=== PATIENT | male | born 1950 | race African-American/Black ===

== ENCOUNTER 2019-08-16 15:48 | Inpatient (IN) | payer MEDICARE, MEDICAID ==
[~2019-08-16] VITALS: Ht 167.6 cm; Wt 67.6 kg
[2019-08-16 16:00] VITALS: BP 145/94
--- NOTE | 2019-08-16 16:02 | Emergency Room Report ---
History of Present Illness General Chief Complaint: Chest Pain Source: Patient Present Illness HPI Disclaimer: Please note that this report is being documented using [employer] technology. This can lead to erroneous entry secondary to incorrect interpretation by the dictating instrument. HPI: 69-year-old male history of peripheral vascular disease, hypertension, diabetes presents for evaluation of chest pain. Symptoms began 3 hours ago. The patient states he was walking around his room at the convalescent home when he felt tightness and cramping in his legs which he usually gets from peripheral vascular disease but also felt a tightness across his chest, left side greater than than right, that radiated up to the neck and down the left side of the body. This pain is now resolved but he continues to feel a tightness in the chest intermittently that is exacerbated by bending and twisting motions. He denies any recent cough but did report some shortness of breath while he was experiencing the chest discomfort. He reported some vertiginous-like symptoms and has a history of vertigo. There was no loss of consciousness, head injury reported. Extensive smoking history and family history of CAD. The patient does not believe that he has had a heart attack or have any stents. Denies recent fever, chills, vomiting, diarrhea, sore throat, nasal congestion. PMH: Hypertension, hyperlipidemia, diabetes, vertigo PSH: Reviewed Allergies: Denies Social Hx: Extensive smoking history Allergies: Coded Allergies: No Known Allergies (Unverified , 08/16/19) COVID-19 Screening Contact w/high risk pt: No Recent Travel to affected area: No Experienced COVID-19 symptoms?: Yes COVID-19 symptoms experienced: Shortness of Breath Review of Systems All Other Systems: negative except mentioned in HPI Physical Exam Vital Signs Date Time Temp Pulse Resp B/P (MAP) Pulse Ox O2 Delivery O2 Flow Rate FiO2 08/16/19 15:49 97.9 64 20 145/94 (111) 97 Room Air General: Awake and alert, no acute distress HEENT: NC/AT. EOMI. Neck: Supple, trachea midline Chest Wall: Reproducible chest wall pain without crepitus or deformity Cardiovascular: RRR. S1 and S2 normal. No murmur appreciated Resp: Normal work of breathing. No cough, wheezing or crackles appreciated Abdomen: Abdomen is soft, nondistended. Nontender Skin: Intact. No abrasions, laceration or rash over the exposed skin MSK: Normal tone and bulk. Moving all extremities. No obvious deformity. Calves are symmetrical, nontender Neuro: Awake and alert. Mentating appropriately. Medical Decision Making Diagnostic Impression: Primary Impression: Chest pain Additional Impression: Suspected 2019 novel coronavirus infection ER Course This is 69-year-old male presenting from convalescent home for evaluation of chest pain and shortness of breath. Differential includes was not limited to angina, ACS, pleurisy, pneumonia, bronchitis. He is in no distress. Oxygenation 97% on room air. Will obtain EKG, chest x-ray, blood work including cardiac enzymes. Patient denies any recent cardiac stress testing or history of angiography. His symptoms may also represent a flulike illness and possibly coronavirus 19 infection. Will require admission to isolation. Laboratory Tests Test 08/16/19 16:50 White Blood Count 6.9 K/UL (4.8-10.8) Red Blood Count 5.08 M/UL (4.70-6.10) Hemoglobin 14.6 G/DL (14.2-18.0) Hematocrit 43.8 % (42.0-52.0) Mean Corpuscular Volume 86 FL (80-99) Mean Corpuscular Hemoglobin 28.8 PG (27.0-31.0) Mean Corpuscular Hemoglobin Concent 33.3 G/DL (32.0-36.0) Red Cell Distribution Width 12.9 % (11.6-14.8) Platelet Count 229 K/UL (150-450) Mean Platelet Volume 8.3 FL (6.5-10.1) Neutrophils (%) (Auto) 50.3 % (45.0-75.0) Lymphocytes (%) (Auto) 36.7 % (20.0-45.0) Monocytes (%) (Auto) 10.2 % (1.0-10.0) H Eosinophils (%) (Auto) 1.6 % (0.0-3.0) Basophils (%) (Auto) 1.2 % (0.0-2.0) Sodium Level 140 MMOL/L (136-145) Potassium Level 4.5 MMOL/L (3.5-5.1) Chloride Level 105 MMOL/L (98-107) Carbon Dioxide Level 30 MMOL/L (21-32) Anion Gap 5 mmol/L (5-15) Blood Urea Nitrogen 17 mg/dL (7-18) Creatinine 1.0 MG/DL (0.55-1.30) Estimated Glomerular Filtration Rate > 60 mL/min (>60) Glucose Level 103 MG/DL (74-106) Calcium Level 9.6 MG/DL (8.5-10.1) Total Bilirubin 0.6 MG/DL (0.2-1.0) Aspartate Amino Transferase (AST) 55 U/L (15-37) H Alanine Aminotransferase (ALT) 93 U/L (12-78) H Alkaline Phosphatase 84 U/L (46-116) Troponin I 0.000 ng/mL (0.000-0.056) Pro-B-Type Natriuretic Peptide 39 pg/mL (0-125) Total Protein 7.7 G/DL (6.4-8.2) Albumin 3.8 G/DL (3.4-5.0) Globulin 3.9 g/dL Albumin/Globulin Ratio 1.0 (1.0-2.7) EKG Diagnostic Results EKG Time: 16:05 Rate: normal Rhythm: NSR ST Segments: no acute changes Other Impression Sinus rhythm, normal axis, normal intervals, no ST segment changes Rhythm Strip Diag. Results Rhythm Strip Time: 16:05 EP Interpretation: yes Rate: 60s Rhythm: NSR, no PVC's, no ectopy Chest X-Ray Diagnostic Results Chest X-Ray Diagnostic Results : Chest X-Ray Ordered: Yes # of Views/Limited/Complete: 1 View Indication: Chest Pain Interpretation: no consolidation, no effusion, no pneumothorax, no acute cardiopulmonary disease Impression: No acute disease Electronically Signed by: Electronically signed by Dr. Dwayne Collier Reevaluation Time: 17:32 Last Vital Signs Date Time Temp Pulse Resp B/P (MAP) Pulse Ox O2 Delivery O2 Flow Rate FiO2 08/16/19 15:49 97.9 64 20 145/94 (111) 97 Room Air Status: unchanged Reevaluation Impression EKG is nonischemic. Chest x-ray unremarkable without evidence of infiltrate. Labs including troponin are within normal limits. The patient remains chest pain-free and in stable condition. He will be admitted to telemetry on respiratory isolation protocols until the COVID-19 swab is resulted. Patient will be admitted to his PMD, Dr. Marie. Disposition: ADMITTED INPATIENT Condition: Serious Dwayne Collier MD Aug 16, 2019 16:02
--- NOTE | 2019-08-16 17:09 | Diagnostic Imaging Report ---
Indication: Chest pain Technique: One view of the chest Comparison: none Findings: No acute infiltrates, effusions, or congestion. Tortuous calcified aorta. Normal heart size. Upper mediastinum unremarkable. Impression: No acute process.
[2019-08-16 17:13] LABS: ANION GAP 5 mmol/L (5-15); BLOOD UREA NITROGEN 17 mg/dL (7-18); CALCIUM 9.6 MG/DL (8.5-10.1); CARBON DIOXIDE 30 MMOL/L (21-32); CHLORIDE 105 MMOL/L (98-107); POTASSIUM 4.5 MMOL/L (3.5-5.1); SODIUM 140 MMOL/L (136-145)
[2019-08-16 17:19] LABS: BASOPHILS % (AUTO) 1.2 % (0.0-2.0); EOSINOPHILS % (AUTO) 1.6 % (0.0-3.0); HEMATOCRIT 43.8 % (42.0-52.0); HEMOGLOBIN 14.6 G/DL (14.2-18.0); LYMPHOCYTES % (AUTO) 36.7 % (20.0-45.0); MEAN CORPUSCULAR VOLUME 86 FL (80-99); MONOCYTES % (AUTO) 10.2 % (1.0-10.0); NEUTROPHILS % (AUTO) 50.3 % (45.0-75.0); PLATELET COUNT 229 K/UL (150-450); RED BLOOD COUNT 5.08 M/UL (4.70-6.10); RED CELL DISTRIBUTION WIDTH 12.9 % (11.6-14.8); WHITE BLOOD COUNT 6.9 K/UL (4.8-10.8)
[2019-08-16 17:25] LABS: ALANINE AMINOTRANSFERASE 93 U/L (12-78); ALBUMIN 3.8 G/DL (3.4-5.0); ALKALINE PHOSPHATASE 84 U/L (46-116); ASPARTATE AMINO TRANSFERASE 55 U/L (15-37); BILIRUBIN,TOTAL 0.6 MG/DL (0.2-1.0)
[2019-08-16 18:02] VITALS: BP 141/90
[2019-08-16 19:10] VITALS: BP 136/79
[2019-08-16 20:45] VITALS: BP 129/72
[2019-08-16] MEDS ORDERED: BENAZEPRIL HCL10 MG ORAL (23:01)
[2019-08-16] MEDS ORDERED: METFORMIN HCL500 M4 ORAL (23:01)
[2019-08-16] MEDS ORDERED: DOCUSATE SODIU100 M2 ORAL (23:01)
[2019-08-16] MEDS ORDERED: GABAPENTIN100 MG ORAL (23:01)
[2019-08-16] MEDS ORDERED: MULTIVITAMINS1 EAC8 ORAL (23:01)
[2019-08-16] MEDS ORDERED: NOVOLOG100 UNITS1 (23:01)
[2019-08-16] MEDS ORDERED: ACETAMINOPHEN500 MG ORAL (23:01)
[2019-08-16] MEDS ORDERED: Acetaminophen 500mg (ES) tab ORAL PRN (23:15)
[2019-08-17 00:03] VITALS: BP 144/92
[2019-08-17 04:00] VITALS: BP 153/84
[2019-08-17] MEDS: NovoLOG Insulin Flexpen SUBQ SCH ×4 (05:28→21:00)
[2019-08-17 08:11] LABS: ANION GAP 6 mmol/L (5-15); BLOOD UREA NITROGEN 16 mg/dL (7-18); CALCIUM 9.4 MG/DL (8.5-10.1); CARBON DIOXIDE 30 MMOL/L (21-32); CHLORIDE 106 MMOL/L (98-107); CREATININE 0.9 MG/DL (0.55-1.30); POTASSIUM 4.7 MMOL/L (3.5-5.1); SODIUM 142 MMOL/L (136-145)
[2019-08-17 08:18] LABS: BASOPHILS % (AUTO) 1.6 % (0.0-2.0); EOSINOPHILS % (AUTO) 2.4 % (0.0-3.0); HEMATOCRIT 43.6 % (42.0-52.0); HEMOGLOBIN 14.9 G/DL (14.2-18.0); LYMPHOCYTES % (AUTO) 31.8 % (20.0-45.0); MEAN CORPUSCULAR VOLUME 84 FL (80-99); MONOCYTES % (AUTO) 14.9 % (1.0-10.0); NEUTROPHILS % (AUTO) 49.4 % (45.0-75.0); PLATELET COUNT 219 K/UL (150-450); RED BLOOD COUNT 5.19 M/UL (4.70-6.10); RED CELL DISTRIBUTION WIDTH 11.5 % (11.6-14.8); WHITE BLOOD COUNT 6.9 K/UL (4.8-10.8)
[2019-08-17] MEDS: Multivitamin w/Minerals tab ORAL SCH (09:51)
[2019-08-17] MEDS: Docusate 100mg cap ORAL SCH (09:51)
[2019-08-17] MEDS: Benazepril 10mg tab ORAL SCH (09:51)
[2019-08-17] MEDS: metFORMIN 500mg tab ORAL SCH (09:51)
[2019-08-17 12:00] VITALS: BP 100/70
[2019-08-17 20:00] VITALS: BP 111/65
--- NOTE | 2019-08-17 22:30 | Initial Psychiatric Evaluation ---
Psychiatry Consultation Psychiatry Consultation Chief Complaint: Chest Pain Allergies: Coded Allergies: No Known Allergies (Unverified , 08/16/19) Medication History Scheduled Acetaminophen* (Tylenol Extra Strength*), 1,000 MG ORAL Q4HR, (Reported) Benazepril Hcl* (Benazepril Hcl*), 10 MG ORAL DAILY, (Reported) Docusate Sodium (Docusate Sodium), 100 MG ORAL DAILY, (Reported) Gabapentin* (Gabapentin*), 200 MG ORAL TWICE A DAY, (Reported) Metformin Hcl (Metformin Hcl Er), 500 MG ORAL DAILY, (Reported) Multivitamin With Minerals (Multivitamins With Minerals*), 1 TAB ORAL DAILY, ( Reported) Miscellaneous Medications Insulin Aspart (Novolog Flexpen), (Reported) Objective Data Height (Feet): 5 Height (Inches): 6.00 Weight (Pounds): 149 Jd Chao MD Aug 17, 2019 22:30
[2019-08-18] VITALS: BP 107/61
[2019-08-18 04:00] VITALS: BP 116/74
--- NOTE | 2019-08-18 05:15 | History and Physical Report ---
DATE OF ADMISSION: 08/16/2019 HISTORY OF PRESENT ILLNESS: The patient comes in because of chest pain. The patient basically denies nausea, vomiting, or diarrhea. Denies cough. Denies also fever or chills. The patient also denies shortness of breath and denies orthopnea. PAST MEDICAL HISTORY: Significant for GERD, psychosis, and mood disorder. PAST SURGICAL HISTORY: Denies. ALLERGIES: No known allergies. MEDICATIONS: The patient takes mostly psychiatric medications. FAMILY HISTORY: Noncontributory. SOCIAL HISTORY: Does have history of remote smoking. Denies history of alcohol abuse. Denies history of drug abuse. Comes from a group home. REVIEW OF SYSTEMS: HEENT: Denies headaches. PULMONARY: Denies shortness of breath. Denies cough. CARDIOVASCULAR: Reported chest pain x1 day. No radiation. No palpitation. No orthopnea. GASTROINTESTINAL: Denies nausea, vomiting, or diarrhea. Denies heartburn. EXTREMITIES: Denies pain. CENTRAL NERVOUS SYSTEM: Denies change in speech pattern. PHYSICAL EXAMINATION: VITAL SIGNS: Temperature 97.2, pulse 78, blood pressure 132/70. HEENT: PERRLA. NECK: Supple. No lymphadenopathy. CHEST: Clear to auscultation. CARDIOVASCULAR: Regular rate and rhythm. No murmurs or extra sounds. GASTROINTESTINAL: Soft, nontender, nondistended. No organomegaly. EXTREMITIES: No edema. Moves all four extremities. NEUROLOGIC: Sensory intact to light touch. Reflexes in both sides. Moves all four extremities. LABORATORY DATA: Essentially normal. ASSESSMENT AND PLAN: Chest pain, rule out acute coronary syndrome. The patient's troponin sent. Repeat troponin will be done. Dr. Jaime is consulted to rule out acute coronary syndrome. The stress test if any will be deferred to Dr. Jaime. We will monitor the patient closely. Esther Marie M.D. DR: Fabiola JOB#: [id number] CC:
[2019-08-18] MEDS: NovoLOG Insulin Flexpen SUBQ SCH ×4 (06:30→21:00)
[2019-08-18 08:00] VITALS: BP 112/75
[2019-08-18] MEDS: Docusate 100mg cap ORAL SCH (08:35)
[2019-08-18] MEDS: Multivitamin w/Minerals tab ORAL SCH (08:36)
[2019-08-18] MEDS: metFORMIN 500mg tab ORAL SCH (08:36)
[2019-08-18] MEDS: Benazepril 10mg tab ORAL SCH (08:46)
[2019-08-18 12:00] VITALS: BP 110/66
[2019-08-18 16:00] VITALS: BP 134/56
[2019-08-18 20:00] VITALS: BP 130/69
--- NOTE | 2019-08-18 21:40 | General Progress Note ---
Assessment/Plan Status: progressing Assessment/Plan: chest pain is improving negative trop will dc if ok w dr chau Subjective ROS Limited/Unobtainable: Yes Allergies: Coded Allergies: No Known Allergies (Unverified , 08/16/19) Objective Last 24 Hour Vital Signs Date Time Temp Pulse Resp B/P (MAP) Pulse Ox O2 Delivery O2 Flow Rate FiO2 08/18/19 16:00 62 08/18/19 16:00 97.9 72 18 134/56 (82) 98 08/18/19 12:00 61 08/18/19 12:00 97.7 65 18 110/66 (81) 98 08/18/19 09:00 Room Air 08/18/19 08:46 112/75 08/18/19 08:00 97.8 86 18 112/75 (87) 98 08/18/19 08:00 53 08/18/19 04:00 97.2 60 18 116/74 (88) 99 08/18/19 03:45 52 08/18/19 00:00 61 08/18/19 00:00 98.4 62 19 107/61 (76) 99 Intake and Output 08/17/19 08/18/19 19:00 07:00 Intake Total 980 ml 250 ml Output Total 450 ml Balance 980 ml -200 ml Intake Oral 980 ml 250 ml Output Urine Total 450 ml # Voids 5 2 Height (Feet): 5 Height (Inches): 6.00 Weight (Pounds): 149 Esther Marie MD Aug 18, 2019 21:40
--- NOTE | 2019-08-18 21:45 | Progress Note ---
DATE: 08/18/2019 SUBJECTIVE: The patient is in bed, able to answer the question. He is in isolation. He is using a walker to ambulate. MENTAL STATUS EXAMINATION: Alert and oriented times self and place, did not know the date. Mood is neutral. Affect is flat. Thought process is concrete. Thought content, there is no suicidal or homicidal ideation. Cognition is impaired. Insight and judgment impaired. ASSESSMENT: AXIS I: 1. Major depressive disorder. 2. Psychotic disorder. PLAN: 1. We will continue the Lexapro 10 mg in the morning. 2. Ativan as needed. Jd Chao M.D. DR: Lacey JOB#: [id number] CC:
[2019-08-19] VITALS: BP 146/60
[2019-08-19 04:00] VITALS: BP 130/86
[2019-08-19] MEDS: NovoLOG Insulin Flexpen SUBQ SCH ×2 (06:30→11:30)
[2019-08-19 08:00] VITALS: BP 128/76
[2019-08-19] MEDS: metFORMIN 500mg tab ORAL SCH (09:28)
[2019-08-19] MEDS: Docusate 100mg cap ORAL SCH (09:28)
[2019-08-19 09:29] VITALS: BP 128/76
[2019-08-19] MEDS: Benazepril 10mg tab ORAL SCH (09:29)
[2019-08-19] MEDS: Multivitamin w/Minerals tab ORAL SCH (09:29)
--- NOTE | 2019-08-19 14:17 | Cardiology Progress Note ---
Assessment/Plan Assessment/Plan Th patient is seen and examined, full consult note is dictated. Objective Last 24 Hour Vital Signs Date Time Temp Pulse Resp B/P (MAP) Pulse Ox O2 Delivery O2 Flow Rate FiO2 08/19/19 09:29 128/76 08/19/19 09:00 Room Air 08/19/19 08:00 58 08/19/19 08:00 98.0 76 20 128/76 (93) 97 08/19/19 04:00 57 08/19/19 04:00 97.6 64 18 130/86 (101) 100 08/19/19 01:40 Room Air 08/19/19 00:00 98.6 68 19 146/60 (88) 100 08/19/19 00:00 68 08/19/19 00:00 68 08/18/19 21:00 Room Air 08/18/19 20:00 66 08/18/19 20:00 96.6 67 18 130/69 (89) 95 08/18/19 16:00 62 08/18/19 16:00 97.9 72 18 134/56 (82) 98 Intake and Output 08/18/19 08/19/19 19:00 07:00 Intake Total 236 ml Output Total 600 ml Balance -364 ml Intake Oral 236 ml Output Urine Total 600 ml # Voids 5 3 Microbiology Date/Time Source Procedure Growth Status 08/16/19 18:30 Nasal Nares MRSA Culture - Final NO METHICILLIN RESISTANT STAPH AUREUS... Complete 08/16/19 18:20 Nasopharynx Coronavirus COVID-19 PCR ([facility]) - Final Complete 08/16/19 18:30 Rectum - Final NO CARBAPENEM-RESISTANT ENTEROBACTERI... Complete 08/16/19 18:30 Rectum VRE Culture - Final NO VANCOMYCIN RESISTANT ENTEROCOCCUS ... Complete Juliocesar Jaime MD Aug 19, 2019 14:17
--- NOTE | 2019-08-19 20:45 | Consultation ---
DATE OF CONSULTATION: 08/19/2019 CARDIOLOGY CONSULTATION CONSULTING PHYSICIAN: Juliocesar Jaime MD. REFERRING PHYSICIAN: Esther Marie M.D. REASON FOR CONSULTATION: Management of chest pain. HISTORY OF PRESENT ILLNESS: The patient is a very unfortunate 69-year-old gentleman with prior history of peripheral vascular disease, hypertension, diabetes mellitus who presents to this facility with complaints of chest pain that occurred just about three hours prior to his arrival to this facility. The patient states that he was walking in the convalescent nursing facility and felt tightness and cramping of the leg and also at once he experienced pain in the chest in both side chest wall more accentuated in the left side with radiation to the neck and down to the left side of the body. He states that the chest pain is exacerbated by movements in particular when positions. He denies any cough or fever but reported some shortness of breath. The patient at the time of arrival to the facility, blood pressure 145/94 mmHg and heart rate of 64. At the time of evaluation in the emergency department, initial chest x-ray showed no acute cardiopulmonary disease with normal cardiac silhouette. Laboratory data was significant for a troponin I level x2 as well as normal electrolytes and normal brain natriuretic peptide. The patient was admitted to the hospital for evaluation and management of chest pain. PAST MEDICAL HISTORY: Hypertension, hyperlipidemia, diabetes mellitus, vertigo. PAST SURGICAL HISTORY: None. SOCIAL HISTORY: No history of drugs or alcohol but he has had history of extensive tobacco use in the past. FAMILY HISTORY: No premature coronary artery disease in the first-degree relatives. REVIEW OF SYSTEMS: HEENT: Denies any headache, diplopia, blurred vision. CONSTITUTIONAL: Denies any fever, chills, night sweats, or weight loss. CARDIOVASCULAR: Chest pain is reproducible with bending and twisting motions in both side of the chest wall right and left, more in the left, positive for shortness of breath. No PND, orthopnea, leg swelling, syncope, or palpitation. PULMONARY: Positive for shortness of breath. No cough or hemoptysis. GASTROINTESTINAL: Denies any nausea, vomiting, diarrhea, constipation, abdominal pain, or GI bleed. GENITOURINARY: Denies any hematuria, dysuria, or incontinence. NEUROLOGY: Denies any motor dysfunction, sensory deficit, or altered speech. MEDICATIONS: List of medication in the comparison facility includes acetaminophen 1000 mg q.4h p.r.n. pain, benazepril 10 mg p.o. daily, Colace 100 mg p.o. daily, gabapentin twice daily, insulin aspart, metformin 500 mg daily, multivitamin one tablet daily. PHYSICAL EXAMINATION: VITAL SIGNS: Blood pressure at the time of arrival to this facility was 145/94, pulse of 64, respirations 20, temperature 97.9 degrees Fahrenheit, O2 saturation 97% on room air. GENERAL: The patient is a very unfortunate 69-year-old gentleman in no apparent respiratory distress. Alert and oriented x4. HEENT: Atraumatic and normocephalic. Anicteric. Pupils are equal, round, and reactive to light and accommodation. Extraocular muscles intact. NECK: JVP less than 5 centimeter. No carotid bruit. Carotid upstrokes 2+ bilaterally. CVS: Normal S1 and S2. Regular rate and rhythm. There is a tenderness over the chest wall upon palpation. No murmurs, gallops, or rubs. PMI is at fourth intercostal space in the midclavicular line. LUNGS: Clear to auscultation bilaterally. ABDOMEN: Soft, nontender, and nondistended. No hepatosplenomegaly. Positive bowel sounds. EXTREMITIES: No evidence of edema, clubbing, or cyanosis. LABORATORY AND DIAGNOSTIC DATA: A 12-lead electrocardiogram shows sinus rhythm, heart rate of 62 with no acute ischemic features. Laboratory findings, sodium 140, potassium is 4.5, chloride 105, bicarbonate 30, BUN of 17, creatinine 1.0, glucose 103, calcium 9.6. Troponin I x2 negative. ProBNP was 39. CBC showed WBC 6.9, hemoglobin 14.6, hematocrit of 43.8, and platelet count is 229. Chest x-ray shows no acute cardiopulmonary disease with normal cardiac silhouette. ASSESSMENT AND PLAN: The patient is a very unfortunate 69-year-old gentleman, seen in Cardiology consultation. 1. Noncardiac chest pain despite many risk factors for coronary artery disease including tobacco use, hypertension, diabetes mellitus, patient age. The patient's chest pain is considered to be noncardiac based on reproducibility of the chest pain with movement and palpation. A 12-lead electrocardiogram does not show any ischemic changes. Acute myocardial infarction is ruled out. In the area of COVID-19 infection, I would like to proceed with no further cardiac workup and the patient will benefit from outpatient stress test that can be scheduled later if the patient symptoms are recurrent. At this time, the patient should continue on aspirin and statins in view of his underlying diabetes mellitus. 2. Diabetes mellitus. 3. Hypertension, currently controlled with benazepril. 4. Hyperlipidemia. I would like to thank, for the courtesy of this consultation. Juliocesar Jaime M.D. DR: Leia JOB#: [id number] CC:
--- NOTE | 2019-08-19 20:50 | Psych Consult Progress Note ---
Psychiatry Progress Note Psychiatry Progress Note Allergies: Coded Allergies: No Known Allergies (Unverified , 08/16/19) Objective Data Height (Feet): 5 Height (Inches): 6.00 Weight (Pounds): 149 Assessment/Plan Status: progressing Jd Chao MD Aug 19, 2019 20:50
--- NOTE | 2019-08-21 12:34 | Discharge Summary ---
Discharge Summary Discharge Summary _ DATE OF ADMISSION: 08/16/2019 DATE OF DISCHARGE: 08/19/2019 DISCHARGED BY: Dr. Esther Coffman CONSULTANTS: Dr. Jd Jaime BRIEF HOSPITAL COURSE: Patient is a 69-year-old male, with history of peripheral vascular disease, hypertension, diabetes, presented for evaluation of chest pain. Symptoms started 3 hours prior to arrival. Patient was walking around his room at the convalescent home when he felt tightness and cramping in the legs which he usually gets from peripheral vascular disease, but also felt tightness across his chest, left side greater than the right, that radiated up to the neck and down to the left side of the body. Chest tightness was intermittent and was exacerbated by bending and twisting motions. He denied any recent cough but reported shortness of breath while experiencing chest discomfort. He reported vertiginous-like symptoms. There was no loss of consciousness, no head injury. He has extensive smoking history and family history of CAD. He denied fever, chills, vomiting, diarrhea, sore throat or nasal congestion. He has medical history of hypertension, hyperlipidemia, diabetes and vertigo. Upon evaluation at ED, vital signs were stable. Blood work did not show any leukocytosis, hemoglobin and hematocrit were stable. Electrolytes were normal. Troponin negative. proBNP normal. EKG was in sinus rhythm with no acute changes. Chest x-ray was unremarkable without evidence of infiltrates. He was placed on respiratory isolation. He was swabbed for covid 19. He was then admitted to telemetry for evaluation of chest pain. He underwent cardiac evaluation. Cardiac enzymes were negative x2. Twelve- lead EKG did not show any ischemic changes. He was given antiplatelet therapy. Blood glucose was monitored and was placed on insulin sliding scale and metformin 500 mg daily. He was given benazepril for blood pressure control. He was continued on Lexapro. Chest pain was noncardiac and was reproducible with movement and palpation. Patient was recommended outpatient stress test that can be scheduled later if his symptoms are recurrent. Covid 19 testing was negative. Patient was cleared for discharge back to senior care. FINAL DIAGNOSES: Noncardiac chest pain Diabetes mellitus type 2 Hypertension, controlled Hyperlipidemia Major depressive disorder Psychotic disorder DISPOSITION: Patient was discharged to a SNF. DISCHARGE MEDICATIONS: Refer to Discharge Medication List. I have been assigned to complete a discharge summary on this account, I was not involved with the patient's management.--KAZ Jara Jacqueline Robles NP Aug 21, 2019 12:34
--- NOTE | 2019-08-23 08:05 | Coder Physician Query ---
Clarification is required for compliance, coding accuracy, and to reflect severity of illness for this patient Dear Date: 08/23/2019 Group Leader/CDS' Name: ADELA CRISOSTOMO BRIEF HOSPITAL COURSE: Patient is a 69-year-old male, with history of peripheral vascular disease, hypertension, diabetes, presented for evaluation of chest pain. Upon evaluation at ED, vital signs were stable. Blood work did not show any leukocytosis, hemoglobin and hematocrit were stable. Electrolytes were normal. Troponin negative. proBNP normal. EKG was in sinus rhythm with no acute changes. Chest x-ray was unremarkable without evidence of infiltrates. He was placed on respiratory isolation. He was swabbed for covid 19. He was then admitted to telemetry for evaluation of chest pain. He underwent cardiac evaluation. Cardiac enzymes were negative x2. Twelve- lead EKG did not show any ischemic changes. He was given antiplatelet therapy. Blood glucose was monitored and was placed on insulin sliding scale and metformin 500 mg daily. He was given benazepril for blood pressure control. He was continued on Lexapro. Chest pain was noncardiac and was reproducible with movement and palpation. Patient was recommended outpatient stress test that can be scheduled later if his symptoms are recurrent. Covid 19 testing was negative. Please document the suspected etiology of Chest Pain: [] Acute Coronary Syndrome [] Pericarditis [] Anxiety [] Costochondritis [] Pneumothorax [] GERD/Esophagitis [] Pulmonary embolism [] Other: [] Unable to determine Physician signature Date Please also document in your Progress Notes and/or Discharge Summary and indicate if the condition was present on admission. ALPHONSO
== END 2019-08-19 13:20 | DRG 351 ==
LOC: EDBD 15:48 → EDUNIT# 15:48 → EMR 16:00 → 2E 16:30 → EDBEDREQ 20:30
DX: S29.011A Strain of muscle and tendon of front wall of thorax, initial encounter (principal); X58.XXXA Exposure to other specified factors, initial encounter; R07.89 Other chest pain; F32.3 Major depressive disorder, single episode, severe with psychotic features; K21.9 Gastro-esophageal reflux disease without esophagitis; I73.9 Peripheral vascular disease, unspecified; E11.9 Type 2 diabetes mellitus without complications; I10 Essential (primary) hypertension; E78.5 Hyperlipidemia, unspecified; F29 Unspecified psychosis not due to a substance or known physiological condition; Z79.4 Long term (current) use of insulin
CPT/HCPCS: 36415; 71045; 80048; 80053; 83880; 84484; 85025; 87081; 87635; 93005; 99285; J1815